=== PATIENT | male | born 1995 | race Two or more races ===

== ENCOUNTER 2019-07-19 14:14 | Emergency (ER) | payer OTHER ==
[~2019-07-19] VITALS: Ht 180.3 cm; Wt 72.6 kg
--- NOTE | 2019-07-19 14:15 | NUR ---
ED Nurse Note: pt BIBA from home d/t LT knee pain s/p fall from skateboarding last night. AOx3, per paramedics report, pt has some "mental issues". Pt's VSS, on RA. Placed on bed.
--- NOTE | 2019-07-19 14:28 | NUR ---
ED Nurse Note: ERPA on bedside.
[2019-07-19] MEDS ORDERED: Methocarbamol 500mg tab ORAL ONE (14:30)
--- NOTE | 2019-07-19 14:56 | NUR ---
ED Nurse Note: X-ray on bedside
--- NOTE | 2019-07-19 15:14 | Diagnostic Imaging Report ---
INDICATION: Knee Pain COMPARISON: None 3 views of the left knee were obtained. FINDINGS: No acute fracture, malalignment, or joint effusion are identified. Impression: Negative for acute injury
--- NOTE | 2019-07-19 15:25 | Emergency Room Report ---
History of Present Illness General Chief Complaint: Lower Extremity Injury Source: Patient Present Illness HPI 23-year-old male with history of schizophrenia currently not taking medication brought in by paramedics complaining of left knee and ankle pain after falling off of a scooter 1 day ago. Rating pain 10 out of 10 without radiation. Denies tingling and numbness, calf tenderness. Denies head injury or loss of consciousness. Has not taken medication for symptom relief. Reports that he has not taken his schizophrenia medication for time and is interested in establishing new psychiatrist. Denies SI and HI at this time Allergies: Coded Allergies: RISPERIDONE (Verified Allergy, Unknown, 07/19/19) Patient History Past Medical History: see triage record Past Surgical History: none Pertinent Family History: none Immunizations: UTD Reviewed Nursing Documentation: PMH: Agreed; PSxH: Agreed Nursing Documentation-PMH Past Medical History: No History, Except For Review of Systems All Other Systems: negative except mentioned in HPI Physical Exam Vital Signs Date Time Temp Pulse Resp B/P (MAP) Pulse Ox O2 Delivery O2 Flow Rate FiO2 07/19/19 14:11 98.2 106 16 107/66 (80) 99 Room Air Sp02 EP Interpretation: reviewed, normal General Appearance: no apparent distress, alert, GCS 15, non-toxic Head: normocephalic, atraumatic Eyes: bilateral eye normal inspection, bilateral eye PERRL ENT: hearing grossly normal, normal pharynx, no angioedema, normal voice Neck: full range of motion, supple/symm/no masses Respiratory: chest non-tender, lungs clear, normal breath sounds, no rhonchi, no respiratory distress, no retraction, speaking full sentences Cardiovascular #1: regular rate, rhythm, no edema, no murmur, normal capillary refill Cardiovascular #2: 2+ dorsalis pedis (R), 2+ dorsalis pedis (L) Gastrointestinal: normal bowel sounds, non tender, soft, non-distended, no guarding, no rebound Rectal: deferred Genitourinary: no CVA tenderness Musculoskeletal: back normal, normal range of motion, digits/nails normal, no calf tenderness, pelvis stable, no lower extremity edema, non-tender Neurologic: alert, motor strength/tone normal, oriented x3, sensory intact, responsive, speech normal Psychiatric: judgement/insight normal, memory normal, mood/affect normal, no suicidal/homicidal ideation Skin: no rash Lymphatic: no adenopathy Medical Decision Making PA Attestation All my diagnosis and treatment plans were reviewed ad discussed with my supervising physician Dr. Link Diagnostic Impression: Primary Impression: Knee sprain Additional Impression: Ankle sprain ER Course 23-year-old male with history of schizophrenia currently not taking medication brought in by paramedics complaining of left knee and ankle pain after falling off of a scooter 1 day ago. Rating pain 10 out of 10 without radiation. Denies tingling and numbness, calf tenderness. Denies head injury or loss of consciousness. Has not taken medication for symptom relief. Reports that he has not taken his schizophrenia medication for time and is interested in establishing new psychiatrist. Denies SI and HI at this time Ddx considered but are not limited to: ankle sprain, ankle strain, ankle fracture, ankle contusion, knee fracture versus sprain versus strain Vital signs: are WNL, pt. is afebrile H&PE are most consistent with: Left knee sprain, left ankle sprain ORDERS: ankle and knee x-ray, ibuprofen, Robaxin ED INTERVENTIONS: Toradol, Robaxin DISCHARGE: At this time pt. is stable for d/c to home. Will provide printed patient care instructions, and any necessary prescriptions. Care plan and follow up instructions have been discussed with the patient prior to discharge. Patient to follow primary care provider, Daniel bandage was applied, patient was for crutches and crutches were provided. Also gave a list department for symptom relief the emergency room. Patient does not remember the schizophrenia used to take Other X-Ray Diagnostic Results Other X-Ray Diagnostic Results #1: X-Ray ordered: Left knee # of Views/Limited Vs Complete: 3 View Indication: Pain EP Interpretation: Yes PA Xray: Interpretation reviewed, by supervising MD, and agrees with findings. Interpretation: no dislocation, no soft tissue swelling, no fractures Impression: No acute disease Electronically Signed by: Sally Childers PA-C Other X-Ray Diagnostic Results #2: X-Ray ordered: Left ankle # of Views/Limited Vs Complete: 3 View Indication: Pain EP Interpretation: Yes PA Xray: Interpretation reviewed, by supervising MD, and agrees with findings. Interpretation: no dislocation, no soft tissue swelling, no fractures Impression: No acute disease Electronically Signed by: Sally Childers PA-C Last Vital Signs Date Time Temp Pulse Resp B/P (MAP) Pulse Ox O2 Delivery O2 Flow Rate FiO2 07/19/19 15:01 98.2 07/19/19 14:11 106 16 107/66 (80) 99 Room Air Status: improved Disposition: HOME, SELF-CARE Condition: Stable Scripts Methocarbamol* (ROBAXIN-500*) 500 Mg Tablet 500 MG ORAL TID PRN for For Pain, #15 TAB 0 Refills Prov: Sally Vasquez 07/19/19 Ibuprofen* (MOTRIN*) 600 Mg Tablet 600 MG ORAL Q8H PRN for For Pain, #30 TAB 0 Refills Prov: Sally Vasquez 07/19/19 Referrals: [facility],REFERR[facility] (PCP) Patient Instructions: Ankle Sprain, Knee Sprain Additional Instructions: Take medication as directed, follow-up with your primary care provider, if worsening symptoms return to the emergency room Sally Vasquez Jul 19, 2019 15:25
[2019-07-19] MEDS ORDERED: IBUPROFEN600 MG ORAL (15:28)
[2019-07-19] MEDS ORDERED: ROBAXIN-500MG ORAL (15:28)
--- NOTE | 2019-07-19 15:44 | Diagnostic Imaging Report ---
Indication: left ankle pain Comparison: None Findings: 3 views of the left ankle obtained. No acute fracture, malalignment, periostitis, or osteochondral defects are identified. Impression: No acute findings
[2019-07-19 16:01] VITALS: BP 107/66
--- NOTE | 2019-07-19 16:01 | NUR ---
ER DISCHARGE NOTE: Pt is cleared to be discharged per ERMD. Pt is AOx4, VSS, on RA. pt was given dc and prescription instructions, pt was able to verbalize understanding, pt id band removed. pt is able to ambulate with steady gait. pt took all belongings.
== END 2019-07-19 16:01 | disposition home or self-care (01) ==
LOC: EDBD 14:14 → EMR 14:28
DX: S83.92XA Sprain of unspecified site of left knee, initial encounter (principal); S93.402A Sprain of unspecified ligament of left ankle, initial encounter; W05.1XXA Fall from non-moving nonmotorized scooter, initial encounter; Y92.9 Unspecified place or not applicable; Z88.8 Allergy status to other drugs, medicaments and biological substances
CPT/HCPCS: 73562; 73610; Z7502; 99284